=== PATIENT | female | born 1955 | race Caucasian/White ===

== ENCOUNTER → 2018-04-17 10:25 | Outpatient (CLI) | payer OTHER, SELFPAY ==
--- NOTE | 2018-04-17 10:29 | MM_ITS ---
MM Dig screening mamm BI w/CAD CAD Screening COMPARISON: Digital mammograms with CAD 04/13/2017 and 04/03/2016 INDICATION: There is a history of breast cancer patient maternal aunt diagnosed in her 60s. There is been previous biopsy left breast for benign disease. TECHNIQUE: Standard CC and MLO images were obtained. R2 CAD reviewed. FINDINGS: The breasts are composed primarily of fat with fibro glandular densities in the subareolar regions bilaterally. There is a biopsy clip deep to the nipple left breast and is a benign-appearing calcification near the nipple left breast. There is no suspicious lesion and there are no suspicious microcalcifications. IMPRESSION: Fibrofatty parenchyma with no suspicious lesion seen BI-RADS Category: 2 Benign Finding(s) RECOMMENDED FOLLOW-UP: 1YR - 1 YEAR FOLLOW-UP (A letter has been sent to the patient regarding results of the study.)
--- NOTE | 2018-04-17 10:29 | XR_ITS ---
XR DEXA axial skeleton HISTORY: Postmenopausal ITS.REASON: z78.0 ORDERING PHYSICIAN: Wing Patterson MD PATIENT AGE: 63 years COMPARISON: 04/13/2017 FINDINGS: The BMD measured at the left femoral neck is 0.720 g/cm squared with a T score of -2.3. This is considered Osteopenic according to the World Health Organization criteria. Fracture risk is Moderate. Treatment is advised. The L1-L4 density has a T score of -0.5. The density is decreased by 2%. The hip density has decreased by 3% from the previous study. IMPRESSION: Osteopenia with moderate fracture risk. Suggest treatment and follow-up exam March 2020
== END ==
PROVIDERS: PCP Family Medicine; Visit Provider Obstetrics & Gynecology
DX: Z78.0 Asymptomatic menopausal state (principal); Z12.31 Encounter for screening mammogram for malignant neoplasm of breast
CPT/HCPCS: 77067; 77080

== ENCOUNTER → 2018-06-04 10:10 | Outpatient (POV) | payer OTHER, SELFPAY | PROVIDERS: Visit Provider Dermatology | DX: Z00.00 Encounter for general adult medical examination without abnormal findings (principal) ==

== ENCOUNTER → 2018-06-11 08:34 | Outpatient (POV) | payer OTHER, SELFPAY | PROVIDERS: Visit Provider Dermatology | DX: Z00.00 Encounter for general adult medical examination without abnormal findings (principal) ==

== ENCOUNTER → 2018-07-25 10:27 | Outpatient (CLI) | payer OTHER, SELFPAY ==
--- NOTE | 2018-07-25 10:40 | CA_ITS ---
PROCEDURE: 2-D M-mode and color Doppler study INDICATIONS FOR THE TEST: Chest pain COPD Heart Murmur Tobacco Smoking Palpitations Fatigue Syncope+ Edema Hypertension Diabetes Mellitus+ Rheumatic Fever SOB MCMANUS Obesity Hyperlipidemia Family History HD+ Additional History PATIENT INFORMATION HEIGHT: 69 WEIGHT:151 GENDER: Female B/P:140/81 2-D/M-MODE INTERPRETATION: 2-D MEASUREMENTS OBSERVED VALUES IN CMS Right Ventricular Dimension (RVDd) 1.5 Interventricular Septum (Thickness)(IVsd) 0.9 Left Ventricular Internal Dimensions(LVIDd) 3.7 Left Ventricular Posterior Wall (Thickness)(LVPWd) 1.1 Aortic Root 2.3 Aortic Cusp Separation 1.6 Left Atrial Dimensions (LAD) 3.0 2D 1. Left atrium is mildly enlarged, left ventricle is normal size, preserved left ventricular systolic function, visually estimated ejection fraction 55% with no regional wall motion abnormality. 2. The right atrium and right ventricle are normal size and contractility. 3. The aortic valve is minimally thickened and fibrosed. 4. The mitral and tricuspid valve are grossly normal. 5. The pulmonic valve is poorly visualized. 6. No significant pericardial effusion noted. DOPPLER INTERROGATION: Doppler interrogation of the aortic, mitral and tricuspid valvular presence of mild mitral and tricuspid regurgitation, tricuspid regurgitation jet velocity is inadequate for calculation of the right ventricular systolic pressure, diastolic parameters are inconclusive. CONCLUSION: 1. Mildly enlarged left atrium, normal left ventricular size, preserved left ventricular systolic function, visually estimated ejection fraction 55% with no regional wall motion abnormality. Diastolic parameters are inconclusive. 2. Mild mitral and tricuspid regurgitation 3. No significant pericardial effusion noted.
== END ==
PROVIDERS: PCP Internal Medicine; Visit Provider Internal Medicine Cardiovascular Disease
DX: R55 Syncope and collapse (principal)
CPT/HCPCS: 93306

== ENCOUNTER → 2018-10-30 09:21 | Outpatient (CLI) | payer OTHER, SELFPAY ==
--- NOTE | 2018-10-30 09:23 | XR_ITS ---
XR DEXA axial skeleton HISTORY: ITS.REASON: OSTEOPENIA ORDERING PHYSICIAN: Wing Patterson MD PATIENT AGE: 63 years COMPARISON: 04/17/2018 FINDINGS: The BMD measured at the Left femoral neck is 0.730 g/cm squared with a T score of -2.2. This is considered Osteopenic according to the World Health Organization criteria. Fracture risk is Moderate. Mean hip density has increased by 2.7%. The L1 L4 density has a T score of -0.3 has increased by 2.5%. IMPRESSION: Osteopenia with moderate fracture risk. Treatment is advised. Suggest follow-up exam October 2020
== END ==
PROVIDERS: PCP Internal Medicine; Visit Provider Obstetrics & Gynecology
DX: M85.89 Other specified disorders of bone density and structure, multiple sites (principal)
CPT/HCPCS: 77080

== ENCOUNTER → 2019-02-26 14:56 | Outpatient (CLI) | payer OTHER, SELFPAY ==
--- NOTE | 2019-02-26 15:00 | MR_ITS ---
PROCEDURE: MR HEAD/BRAIN WO CON CLINICAL INDICATION: FORGETFULLNESS, HEADACHES Severe headaches with memory loss dizziness and blurred vision COMPARISON: No exams were available for comparison TECHNIQUE: Routine multiplanar multi echo sequences are performed without gadolinium enhancement. FINDINGS: No midline shift, mass effect, intracranial hemorrhage, or hydrocephalus. No evidence of acute infarction. The cerebellopontine angles, cerebellum, and brainstem are unremarkable. The pituitary, optic chiasm, corpus callosum, and craniocervical junction have an unremarkable appearance. No mastoid effusion or sinus air-fluid level. IMPRESSION: Negative MRI of the brain without contrast Dictated by: Ben Hidalgo MD 02/27/2019 17:15 Electronically signed by Ben Hidalgo MD in [place] 02/27/2019 17:15
== END ==
PROVIDERS: PCP Internal Medicine; Visit Provider Internal Medicine
DX: R51 Headache (principal); R41.3 Other amnesia
CPT/HCPCS: 70551

== ENCOUNTER → 2019-05-13 10:26 | Outpatient (POV) | payer OTHER, SELFPAY | PROVIDERS: Visit Provider Dermatology | DX: Z00.00 Encounter for general adult medical examination without abnormal findings (principal) ==

== ENCOUNTER → 2019-05-16 12:51 | Outpatient (CLI) | payer OTHER, SELFPAY ==
--- NOTE | 2019-05-16 12:53 | XR_ITS ---
PROCEDURE: XR DEXA AXIAL SKELETON CLINICAL HISTORY: screening COMPARISON: No exams were available for comparison FINDINGS: L1-L4 density is 1.169 grams/centimeter sq with a T-score of -0.1 Left hip density at the femoral neck is 0.718 grams/centimeters sq with T-score -2 3 consistent osteopenia IMPRESSION: Osteopenia with moderate fracture risk. Treatment advised. Suggest follow-up exam April 2021 Dictated by: Ben Hidalgo MD 05/16/2019 15:12 Electronically signed by Ben Hidalgo MD in [place] 05/16/2019 15:12
--- NOTE | 2019-05-16 12:53 | MM_ITS ---
PROCEDURE: MM DIG SCREENING MAMM BI W/CAD CLINICAL INDICATION: screening History of breast cancer patient's maternal aunt diagnosed after menopause. There has been a previous biopsy left breast for benign disease. COMPARISON: [facility] DIG MAMM-SCREEN SHANTA from 04/03/2016 [facility] DIG MAMM-SCREEN SHANTA W/CAD from 04/13/2017 [facility] MM Dig screening mamm BI w/CAD from 04/17/2018 TECHNIQUE: Standard CC and MLO images were obtained. R2 CAD reviewed. FINDINGS: Minimal fibroglandular densities are seen in the subareolar regions of both breast a background of fatty breast parenchyma. There are 2 biopsy clips left breast. There is a benign-appearing calcification left breast. There is no suspicious lesion and no suspicious microcalcifications. IMPRESSION: Fibrofatty parenchyma with no suspicious lesions seen BI-RAD Category: 2 Benign Finding(s) FOLLOW-UP: 1YR 1 Year Follow-up (A letter has been sent to the patient regarding results of the study.) Dictated by: Dr. Nomi Bowie MD 05/18/2019 16:[address] Nomi Bowie MD in [place] 05/18/2019 16:12
== END ==
PROVIDERS: PCP Internal Medicine; Visit Provider Obstetrics & Gynecology
DX: Z13.820 Encounter for screening for osteoporosis (principal); Z78.0 Asymptomatic menopausal state; Z12.31 Encounter for screening mammogram for malignant neoplasm of breast; M85.89 Other specified disorders of bone density and structure, multiple sites
CPT/HCPCS: 77067; 77080

== ENCOUNTER → 2020-05-18 09:26 | Outpatient (CLI) | payer OTHER, SELFPAY ==
--- NOTE | 2020-05-18 09:26 | XR_ITS ---
PROCEDURE: XR DEXA AXIAL SKELETON CLINICAL HISTORY: Dexa Scan- osteopenia COMPARISON: CR DEXAAX XR DEXA axial skeleton from 10/30/2018 FINDINGS: The right hip BMD is 0.660 with a T-score of -1.7. The left hip BMD is 0.686 with a T-score of -2.1. The lumbar spine BMD is 1.039 with a T-score of -0.1. Previously the lowest density was at the left femoral neck with T-score of -2.2 IMPRESSION: This patient is considered osteopenic according to the World Health Organization criteria. Bone density is between 10 and 25 percent below young normal. Fracture risk is moderate. Treatment is advised. Based on these results a follow-up exam is recommended in 2 year. Dictated by: Ben Hidalgo MD 05/19/2020 10:19 Ben Hidalgo MD in [place] 05/19/2020 10:19
--- NOTE | 2020-05-18 09:26 | MM_ITS ---
PROCEDURE: MM DIG SCREENING MAMM BI W/CAD Digital Breast Tomosynthesis Included CLINICAL INDICATION: Routine Screening Mammogram There is a history of breast cancer in the patient's maternal aunt diagnosed after menopause. There has been a previous biopsy left breast for benign disease. COMPARISON: MG [facility] DIG MAMM-SCREEN SHANTA W/CAD from 04/13/2017 MG [facility] MM Dig screening mamm BI w/CAD from 04/17/2018 MG MM DIG SCREENING MAMM BI W/CAD from 05/16/2019 TECHNIQUE: Standard CC and MLO images and 3D Tomosynthesis was obtained. R2 CAD reviewed. FINDINGS: Mild to moderate scattered fibroglandular densities are seen in each breast primarily in the subareolar regions. There are 2 biopsy clips left breast. There is no suspicious lesion and no suspicious microcalcifications. IMPRESSION: Fibrofatty parenchyma with no suspicious lesions seen BI-RAD Category: 2 Benign Finding(s) FOLLOW-UP: 1YR 1 Year Follow-up (A letter has been sent to the patient regarding results of the study.) Dictated by: Dr. Nomi Bowie MD 05/24/2020 12:55 Dr. Nomi Bowie MD in [place] 05/24/2020 12:55
== END ==
PROVIDERS: PCP Internal Medicine; Visit Provider Obstetrics & Gynecology
DX: Z12.31 Encounter for screening mammogram for malignant neoplasm of breast (principal); M85.80 Other specified disorders of bone density and structure, unspecified site
CPT/HCPCS: 77063; 77067; 77080

== ENCOUNTER → 2020-12-31 11:31 | Outpatient (CLI) | payer OTHER, SELFPAY ==
--- NOTE | 2020-12-31 11:36 | XR_ITS ---
PROCEDURE: XR SHOULDER RT MIN 2V CLINICAL INDICATION: BILATERAL SHOULDER PAIN COMPARISON: No exams were available for comparison FINDINGS: No fracture or dislocation. No lytic or blastic change. There is normal mineralization. The joint spaces are well-preserved. No significant degenerative/arthritic changes. No erosive changes evident. Other findings:No significant subacromial stenosis IMPRESSION: Negative right shoulder Dictated by: Ben Hidalgo MD 12/31/2020 11:54 Ben Hidalgo MD in [place] 12/31/2020 11:54
--- NOTE | 2020-12-31 11:36 | XR_ITS ---
PROCEDURE: XR SHOULDER LT MIN 2V CLINICAL INDICATION: BILATERAL SHOULDER PAIN COMPARISON: No exams were available for comparison FINDINGS: No fracture or dislocation. No lytic or blastic change. There is normal mineralization. The joint spaces are well-preserved. No significant degenerative/arthritic changes. No erosive changes evident. Other findings:No significant subacromial stenosis IMPRESSION: Negative left shoulder Dictated by: Ben Hidalgo MD 12/31/2020 11:54 Ben Hidalgo MD in [place] 12/31/2020 11:54
== END ==
PROVIDERS: PCP Internal Medicine; Visit Provider Internal Medicine
DX: M25.512 Pain in left shoulder (principal); M25.511 Pain in right shoulder; M25.412 Effusion, left shoulder; M25.411 Effusion, right shoulder
CPT/HCPCS: 73030

== ENCOUNTER → 2021-02-05 11:17 | Outpatient (CLI) | payer OTHER, SELFPAY | PROVIDERS: Visit Provider Internal Medicine Gastroenterology | DX: Z01.812 Encounter for preprocedural laboratory examination (principal); Z20.822 Contact with and (suspected) exposure to COVID-19; Z12.11 Encounter for screening for malignant neoplasm of colon | CPT/HCPCS: U0003 ==

== ENCOUNTER 2021-02-07 06:46 | Day surgery (SDC) | payer OTHER, SELFPAY ==
[2021-02-02 10:37] VITALS: BMI 24.3
[2021-02-07 07:15] VITALS: BP 143/74; PULSE 102; RESP 20; TEMP 37.1; O2SAT 100
[2021-02-07 07:19] LABS: POC Glucose,Bedside 156 (70-110)
[2021-02-07 08:00] VITALS: O2SAT 99
--- NOTE | 2021-02-07 08:02 | HMH.ANESCL ---
[facility] Anesthesia Checklist - Patient Identification Patient Identification: Arm Band - Structural Data Admitted From: Home Planned Operative Procedure/s: colonoscopy Consent for Planned Operative Procedure(s) Verified: Yes Verified Documents: Surgical Consent, History and Physical - NPO Status Verified Time NPO: 00:00 - Additional verifications Anesthesia Reactions: No - Airway Assessment C-Spine Mobility Assessed: Yes (mp2) TMJ Mobility Assessed: Yes Dentition: Good Dentition - Neurological Assessment Level of Consciousness: Awake, Alert - Anesthesia Plan Anesthesia Risk discussed: Yes Anesthesia Plan: Verified ASA Class: III Anesthesia Type: MAC [facility] History I have reviewed the patient's past medical history: Yes Medical History: Reports:: Cancer (skin/arm), Diabetes Mellitus Type 1, Hypertension, Renal Disease Denies:: Internal Pacemaker, MRSA, Seizures *Have you ever received a pneumonia vaccine?: No *Have you received a flu vaccine this season?: Yes Anesthesia experience/problems:: nac Laterality Cases: Bilateral: Tonsillectomy Other Surgeries: Yes: Appendectomy, Cholecystectomy, Tubal Ligation, Other. No: Pacemaker Amputation: No Fractures: No - *Social History Last grade of school completed: Some college Smoking Status: Never smoker Alcohol Intake: never Alcohol Intake Frequency:: holidays/special occasions only Substance Use Type: denies use *Occupational Status:: retired Housing: house *Travel in the last 8 weeks: None Family Hx:: Cancer, Hyperlipidemia, Diabetes, Heart Attack, Kidney Disease, Thyroid Disorder, Stroke [employer] history: No [employer] history
--- NOTE | 2021-02-07 08:05 | HMH.PROC ---
[facility] Procedure Note Procedure Note:: Colonoscopy Procedure Report: Colonoscopy Endoscopist: Frankie Jiménez II, MD Referring physician: Gomez Bueno MD Date of Procedure: February 07, 2021 Equipment: Olympus 190 variable stiffness pediatric colonoscope Sedation: MAC sedation Indication: Mrs. Preciado is a 66-year-old female who is here for high risk rating colonoscopy. The patient's father was diagnosed with colon cancer in his mid 60s. Her sister has had colon polyps. She did have a colonoscopy in September 2011 (Ephraim Pierce M.D.) and had a 10 mm and 4 mm colon polyps (tubular adenomas) of the cecum and right colon. She does have some chronic constipation. She reports no abdominal pain, weight loss, change in her bowel habits or rectal bleeding. Procedure: Prior to the procedure, a history and physical exam was performed, and patient's medications and allergies were reviewed. The risks, benefits and alternatives of the sedation and procedure were discussed with the patient. All questions were answered and informed consent was obtained. The patient was brought to the procedure room. Patient identification and proposed procedure were verified by the physician and the nurse. The patient was placed in a left lateral decubitus position and the scope was passed under direct vision. Throughout the procedure, the patient's blood pressure, pulse, and oxygen saturations were monitored continuously. The colonoscopy was accomplished without difficulty. The patient tolerated the procedure well. Findings: On digital rectal examination there was normal rectal tone. There were no external hemorrhoids. The colonoscope was introduced through the anal canal to the rectum and advanced to the cecum. The ileocecal valve and appendiceal orifice were identified. The scope was advanced a short distance into the ileum which appeared grossly normal. The scope was then withdrawn into the colon. The cecum, ascending, transverse, descending, sigmoid and rectum were grossly normal. There was some colonic redundancy. There were no mucosal abnormalities identified. Upon retroflexion within the rectum there were grade 1 internal hemorrhoids.The preparation was good throughout with Armbrust Preparation Score of 8 out of 9. The cecal time was 10 minutes. Impression: 1. Normal colonoscopy with intubation of the terminal ileum 2. Grade 1 internal hemorrhoids Plan: Based upon the patient's family history and prior adenomatous colon polyps, I would recommend repeat surveillance colonoscopy again and 5 years.
[2021-02-07 08:31] VITALS: BP 84/46; PULSE 92; RESP 12; TEMP 36.2; O2SAT 99
[2021-02-07 08:41] VITALS: BP 99/53; PULSE 99; RESP 16; O2SAT 100
[2021-02-07 08:51] VITALS: BP 123/71; PULSE 88; RESP 16; O2SAT 100
[2021-02-07 09:01] VITALS: BP 117/68; PULSE 88; RESP 16; TEMP 36.2; O2SAT 100
== END 2021-02-07 09:02 | disposition home or self-care (01) ==
LOC: OUTP 06:48
PROVIDERS: PCP Internal Medicine; Visit Provider Internal Medicine Gastroenterology
PROC: 0DJD8ZZ Inspection of Lower Intestinal Tract, Via Natural or Artificial Opening Endoscopic (ICD-10-PCS; CPT 45378; principal; 2021-02-07 08:00)
DX: Z12.11 Encounter for screening for malignant neoplasm of colon (principal); Z80.0 Family history of malignant neoplasm of digestive organs; Z86.010 Personal history of colon polyps; K64.0 First degree hemorrhoids; K56.2 Volvulus; E10.9 Type 1 diabetes mellitus without complications; I10 Essential (primary) hypertension; N28.9 Disorder of kidney and ureter, unspecified; Z85.828 Personal history of other malignant neoplasm of skin; Z90.49 Acquired absence of other specified parts of digestive tract; Z83.3 Family history of diabetes mellitus; Z82.3 Family history of stroke
CPT/HCPCS: 45378; 82962

== ENCOUNTER → 2021-03-15 11:02 | Outpatient (POV) | payer OTHER, SELFPAY | PROVIDERS: Visit Provider Dermatology | DX: Z00.00 Encounter for general adult medical examination without abnormal findings (principal) ==

== ENCOUNTER → 2021-05-20 09:23 | Outpatient (CLI) | payer OTHER, SELFPAY ==
--- NOTE | 2021-05-20 09:23 | MM_ITS ---
PROCEDURE INFORMATION: Exam: MG Bilateral Screening 3D Mammography Exam date and time: 05/20/2021 9:23 AM Age: 66 years old Clinical indication: Encounter for screening mammogram for malignant neoplasm of breast TECHNIQUE: Imaging protocol: Bilateral screening tomosynthesis and 2D mammography including computer-aided detection (CAD) when performed. COMPARISON: 1. MG MM DIG SCREENING MAMM BI W/CAD 05/18/2020 9:45 AM 2. MG MM DIG SCREENING MAMM BI W/CAD 05/16/2019 1:18 PM FINDINGS: MAMMOGRAPHY: Breast composition: The breast tissue is composed of scattered areas of fibroglandular density. Mass: None. Architectural distortion: None. Calcifications: No suspicious calcifications. Asymmetric density: None. Skin thickening: None. Axillary adenopathy: None. IMPRESSION: No mammographic evidence of malignancy. Annual screening is recommended unless otherwise clinically indicated. ASSESSMENT: BI-RADS Category 1: Negative
--- NOTE | 2021-05-20 09:23 | XR_ITS ---
PROCEDURE: XR DEXA AXIAL SKELETON CLINICAL HISTORY: Osteopenia COMPARISON: CR XR DEXA AXIAL SKELETON from 05/18/2020 FINDINGS: The right hip BMD is 0.681 with a T-score of -1.5. The left hip BMD is 0.690 with a T-score of -2.1. The lumbar spine BMD is 1.051 with a T-score of 0.0. Previously the lowest density was in the left femoral neck with a T-score of -2.1. IMPRESSION: This patient is considered osteopenic according to the World Health Organization criteria. Bone density is between 10 and 25 percent below young normal. Fracture risk is moderate. Treatment is advised. Based on these results a follow-up exam is recommended in 2 year. Dictated by: Ben Hidalgo MD 05/21/2021 07:54 Ben Hidalgo MD in [place] 05/21/2021 07:54
== END ==
PROVIDERS: PCP Internal Medicine; Visit Provider Obstetrics & Gynecology
DX: Z12.31 Encounter for screening mammogram for malignant neoplasm of breast (principal); M85.89 Other specified disorders of bone density and structure, multiple sites; Z78.0 Asymptomatic menopausal state
CPT/HCPCS: 77063; 77067; 77080

== ENCOUNTER → 2021-11-04 08:58 | Outpatient (CLI) | payer OTHER, SELFPAY ==
[2021-11-04 09:33] LABS: Basophils # 0.1 K/mm3 (0-0.2); Eosinophils # 0.3 K/mm3 (0.0-0.4); Eosinophils % 4.3 % (0.1-12.0); Hemoglobin 12.5 g/dL (12.2-16.2); Lymphocytes # 2.4 K/mm3 (0.7-4.5); Lymphocytes % 35.1 % (10-50); Mean Corpuscular Hemoglobin 30.7 pg (27.0-31.2); Mean Corpuscular Volume 95.8 fl (81-99); Mean Platelet Volume 8.6 fl (7.4-10.4); Monocytes # 0.4 K/mm3 (0.1-1.0); Monocytes % 6.4 % (1.7-9.3); Neutrophils # 3.6 K/mm3 (1.8-7.8); Neutrophils % 53.2 % (37.0-80.0); Platelet Count 305 K/mm3 (142-424); Red Blood Count 4.07 M/mm3 (4.20-5.40); Red Cell Distribution Width 12.7 % (11.5-17.5); White Blood Count 6.7 K/mm3 (4.8-10.8)
[2021-11-04 09:59] LABS: Free T4 (Free Thyroxine) 1.55 ng/dl (0.78-2.19)
[2021-11-04 10:12] LABS: Thyroid Stimulating Hormone 0.02 uIU/mL (0.465-4.68)
== END ==
PROVIDERS: PCP Internal Medicine; Visit Provider Internal Medicine
DX: R53.83 Other fatigue (principal)
CPT/HCPCS: 36415; 82533; 84439; 84443; 85025

== ENCOUNTER → 2021-12-14 15:12 | Outpatient (CLI) | payer OTHER, SELFPAY ==
[2021-12-14 17:13] LABS: Chloride 100 mmol/L (98-107); Sodium 136 mmol/L (136-145)
[2021-12-14 17:14] LABS: Potassium 4.7 mmoL/L (3.5-5.1)
[2021-12-14 17:16] LABS: Alanine Aminotransferase 23 U/L (12-78); Albumin/Globulin Ratio 1.7 (1.1-1.8); Alkaline Phosphatase 85 U/L (38-126); Anion Gap 11.7 mEq/L (5-15); Aspartate Amino Transferase 32 U/L (14-36); Bilirubin,Total 0.3 mg/dl (0.2-1.3); Blood Urea Nitrogen 22 mg/dl (7-17); Carbon Dioxide 29 mmol/L (22.0-30.0); Estimated Glomerular Filt Rate 56 ml/min (>60); GFR (African American) 68 ML/MIN (>60); Globulin 2.3 g/dL (1.3-3.2); Glucose 181 mg/dl (74-100); Total Protein,Serum 6.3 g/dl (6.3-8.2)
[2021-12-14 17:17] LABS: Calcium 9.6 mg/dl (8.4-10.2)
[2021-12-16 10:21] LABS: C-Peptide <0.1 ng/mL (1.1-4.4)
== END ==
PROVIDERS: PCP Internal Medicine; Visit Provider Internal Medicine
DX: E10.9 Type 1 diabetes mellitus without complications (principal); Z79.4 Long term (current) use of insulin
CPT/HCPCS: 36415; 80053; 84681

== ENCOUNTER → 2022-05-22 08:07 | Outpatient (CLI) | payer MEDICARE, OTHER, SELFPAY ==
--- NOTE | 2022-05-22 08:07 | MM_ITS ---
PROCEDURE INFORMATION: Exam: MG Bilateral Screening 3D Mammography Exam date and time: 05/22/2022 8:11 AM Age: 67 years old Clinical indication: Screening. History of benign left stereotactic biopsy. Maternal aunt had breast cancer at age 60. TECHNIQUE: Imaging protocol: Bilateral Screening tomosynthesis and 2D mammography including computer-aided detection (CAD) when performed. COMPARISON: 1. MG MM DIG SCREENING MAMM BI W/CAD 05/20/2021 9:24 AM 2. MG MM DIG SCREENING MAMM BI W/CAD 05/18/2020 9:45 AM 3. MG MM DIG SCREENING MAMM BI W/CAD 05/16/2019 1:18 PM 4. MG [facility] MM Dig screening mamm BI w/CAD 04/17/2018 10:38 AM FINDINGS: MAMMOGRAPHY: Breast composition: There are scattered areas of fibroglandular density. Mass: None. Architectural distortion: None. Calcifications: No suspicious calcifications. Asymmetric density: None. Skin thickening: None. Axillary adenopathy: None. Other: Left biopsy clips. IMPRESSION: No mammographic evidence of malignancy. Annual screening is recommended unless otherwise clinically indicated. ASSESSMENT: BI-RADS Category 2: Benign
--- NOTE | 2022-05-22 08:07 | XR_ITS ---
FINAL REPORT TECHNIQUE: Bone densitometry calculations of the lumbar spine and hips were obtained. CLINICAL HISTORY: . osteopenia/screening COMPARISON: 05/20/2021 FINDINGS: DEXA BONE DENSITY AXIAL SKELETON Using L1-4, the bone mineral density of the spine is 1.063 g/cm2, corresponding to T-score of 0.1. Previously measured 1.051 g/cm2, corresponding to T-score of 0.0. Using the left hip, the bone mineral density of the femoral neck is 0.681 g/cm2, corresponding to a T-score of -2.1. Previously measured 0.690 g/cm2, corresponding to T-score of -2.1. Using the right hip, the bone mineral density of the femoral neck is 0.676 g/cm2, corresponding to a T-score of -1.6. Previously measured 0.681 g/cm2, corresponding to T-score of -1.5. NOTE: T-score: Standard deviation compared with peak bone mass of young adult mean. *Following the recommendations of the International Society of Bone densitometry, classification of hip BMD is based on the lower of two T-scores; total hip or femoral neck. IMPRESSION: Diminished bone mineral density of the hips consistent with osteopenia. Normal bone mineral density of the lumbar spine. FRAX not reported because patient is treated for osteoporosis. Reviewed, Interpreted and Dictated by Jennie Lopez MD Transcribed by Marilyn Givens Authenticated and [facility]
== END ==
PROVIDERS: PCP Internal Medicine; Visit Provider Obstetrics & Gynecology
DX: Z12.31 Encounter for screening mammogram for malignant neoplasm of breast (principal); Z78.0 Asymptomatic menopausal state
CPT/HCPCS: 77063; 77067; 77080

== ENCOUNTER → 2022-12-21 08:33 | Outpatient (CLI) | payer MEDICARE, SELFPAY ==
[2022-12-21 10:16] LABS: Microalbumin/Creatinine Ratio 3.9
[2022-12-21 10:17] LABS: Creatinine,Urine Random 216 mg/dL (Not Estab.)
[2022-12-21 10:23] LABS: Alanine Aminotransferase 26 U/L (12-78); Albumin Level 3.8 g/dl (3.5-5.0); Albumin/Globulin Ratio 1.6 (1.1-1.8); Alkaline Phosphatase 90 U/L (38-126); Anion Gap 10.2 mEq/L (5-15); Aspartate Amino Transferase 36 U/L (14-36); Bilirubin,Total 0.4 mg/dl (0.2-1.3); Blood Urea Nitrogen 18 mg/dl (7-17); Calcium 8.9 mg/dl (8.4-10.2); Carbon Dioxide 31 mmol/L (22.0-30.0); Chloride 104 mmol/L (98-107); Chol/HDL Ratio 1.6 (1-3.5); Cholesterol 153 mg/dl (140-200); Estimated Glomerular Filt Rate 56 ml/min (>60); GFR (African American) 67 ML/MIN (>60); Globulin 2.4 g/dL (1.3-3.2); Glucose 100 mg/dl (74-100); HDL Cholesterol 93 mg/dl (40-60); Potassium 5.2 mmoL/L (3.5-5.1); Sodium 140 mmol/L (136-145); Total Protein,Serum 6.2 g/dl (6.3-8.2); Triglycerides 98 mg/dl (30-150); VLDL Cholesterol 20 mg/dL (0-40)
[2022-12-21 10:33] LABS: Direct LDL Cholesterol 49.85 mg/dL (100-129)
[2022-12-21 10:39] LABS: Free T4 (Free Thyroxine) 0.99 ng/dl (0.78-2.19)
[2022-12-21 10:53] LABS: Thyroid Stimulating Hormone 0.06 uIU/mL (0.465-4.68)
== END ==
PROVIDERS: PCP Internal Medicine; Visit Provider Physician Assistant Medical
DX: E10.9 Type 1 diabetes mellitus without complications (principal); Z79.4 Long term (current) use of insulin
CPT/HCPCS: 36415; 80053; 80061; 82043; 82570; 84439; 84443

== ENCOUNTER 2023-07-17 12:25 | Outpatient (CLI) | payer MEDICARE, SELFPAY ==
[2023-07-17 14:00] LABS: Thyroid Stimulating Hormone 0.04 uIU/mL (0.465-4.68)
[2023-07-17 14:01] LABS: Free T4 (Free Thyroxine) 1.16 ng/dl (0.78-2.19)
== END 2023-07-17 23:59 ==
LOC: LAB 12:27
PROVIDERS: PCP Internal Medicine; Visit Provider Physician Assistant Medical
DX: E10.9 Type 1 diabetes mellitus without complications (principal); Z79.4 Long term (current) use of insulin
CPT/HCPCS: 36415; 84439; 84443

== ENCOUNTER 2023-09-25 11:52 | Outpatient (CLI) | payer MEDICARE, SELFPAY ==
[2023-09-25 15:02] LABS: Thyroid Stimulating Hormone 0.45 uIU/mL (0.465-4.68)
== END 2023-09-25 23:59 ==
LOC: LAB.DROPOF 11:53
PROVIDERS: PCP Internal Medicine; Visit Provider Internal Medicine
DX: E03.9 Hypothyroidism, unspecified (principal)
CPT/HCPCS: 84443

== ENCOUNTER 2023-11-28 09:50 | Outpatient (CLI) | payer MEDICARE, SELFPAY ==
[2023-11-28 16:02] LABS: Free T4 (Free Thyroxine) 0.78 ng/dl (0.78-2.19)
== END 2023-11-28 23:59 | disposition home or self-care (01) ==
LOC: LAB.DROPOF 11-29 09:50
PROVIDERS: PCP Internal Medicine; Visit Provider Internal Medicine
DX: E03.9 Hypothyroidism, unspecified (principal)
CPT/HCPCS: 84439; 84443

== ENCOUNTER 2024-01-08 11:52 | Outpatient (POV) | payer MEDICARE, SELFPAY | END 2024-01-08 23:59 | disposition home or self-care (01) | LOC: SC 11:53 | PROVIDERS: PCP Internal Medicine; Visit Provider Dermatology | DX: Z00.00 Encounter for general adult medical examination without abnormal findings (principal) ==

== ENCOUNTER 2024-05-21 08:15 | Outpatient (CLI) | payer MEDICARE, SELFPAY ==
--- NOTE | 2024-05-21 08:16 | MM_ITS ---
PROCEDURE INFORMATION: Exam: MG Bilateral Screening 3D Mammography Exam date and time: 05/21/2024 8:11 AM Age: 69 years old Clinical indication: Screening examination TECHNIQUE: Imaging protocol: Bilateral Screening tomosynthesis and 2D mammography including computer-aided detection (CAD) when performed. COMPARISON: 1. MG MM DIG SCREENING MAMM BI W/CAD 05/22/2022 8:11 AM 2. MG MM DIG SCREENING MAMM BI W/CAD 05/20/2021 9:24 AM FINDINGS: MAMMOGRAPHY: Breast composition: There are scattered areas of fibroglandular density. Mass: None. Architectural distortion: None. Calcifications: No suspicious calcifications. Asymmetric density: None. Skin thickening: None. Axillary adenopathy: None. IMPRESSION: No mammographic evidence of malignancy. Annual screening is recommended unless otherwise clinically indicated. ASSESSMENT: BI-RADS Category 1: Negative.
--- NOTE | 2024-05-21 08:16 | XR_ITS ---
FINAL REPORT TECHNIQUE: Bone densitometry calculations of the lumbar spine and bilateral hips were obtained. CLINICAL HISTORY: Screening Dexa Scan FINDINGS: Using L1-4, the bone mineral density of the spine is 1.050 g/cm2, corresponding to T-score of 0.0 and a Z score of 2.0. This is within the range of normal. Using the left hip, the bone mineral density of the femoral neck is 0.639 g/cm2, corresponding to a T-score of -1.9 and a Z-score of -0.2. This is within the range of osteopenia. Using the right hip, the bone mineral density of the femoral neck is 0.698 g/cm2, corresponding to a T-score of -1.4 and a Z-score of 0.3. This is within the range of osteopenia. FRAX 10 year fracture risk is 9.8% for a hip fracture and 1.5% for a major osteoporotic fracture. IMPRESSION: Normal bone mineral density of the lumbar spine. Osteopenic bone mineral density of the bilateral hips. NOTE: T-score: Standard deviation compared with peak bone mass of young adult mean. *Following the recommendations of the International Society of Bone densitometry, classification of hip BMD is based on the lower of two T-scores; total hip or femoral neck. Reviewed, Interpreted and Dictated by Breanne Garcia MD Transcribed by Regine Martínez Authenticated and [facility]
== END 2024-05-21 23:59 | disposition home or self-care (01) ==
LOC: RAD 08:16
PROVIDERS: PCP Internal Medicine; Visit Provider Obstetrics & Gynecology
DX: Z78.0 Asymptomatic menopausal state (principal); Z12.31 Encounter for screening mammogram for malignant neoplasm of breast
CPT/HCPCS: 77063; 77067; 77080

== ENCOUNTER 2024-05-28 12:45 | Outpatient (CLI) | payer MEDICARE, SELFPAY ==
[2024-05-29 06:15] LABS: HCV Ab Non Reactive (Non Reactive)
== END 2024-05-28 23:59 | disposition home or self-care (01) ==
LOC: LAB 12:45
PROVIDERS: PCP Internal Medicine; Visit Provider Obstetrics & Gynecology
DX: Z11.59 Encounter for screening for other viral diseases (principal)
CPT/HCPCS: 36415; 86803

== ENCOUNTER 2024-09-01 13:03 | Outpatient (CLI) | payer MEDICARE, SELFPAY ==
[2024-09-01 13:57] LABS: Potassium 5.1 mmoL/L (3.5-5.1)
== END 2024-09-01 23:59 | disposition home or self-care (01) ==
LOC: LAB 13:04
PROVIDERS: PCP Internal Medicine; Visit Provider Internal Medicine
DX: E87.5 Hyperkalemia (principal)
CPT/HCPCS: 36415; 84132